=== PATIENT | female | born 1985 | race African-American/Black ===

== ENCOUNTER 2016-09-28 18:30 | Emergency (ER) | payer OTHER ==
[~2016-09-28] VITALS: Ht 144.8 cm; Wt 72.1 kg
--- NOTE | ~2016-09-28 | EKG ---
[address] [place] [address] ELECTROCARDIOGRAM REPORT Name: CONRAD BIRMINGHAM Room #: [facility]P [facility] [id number] Admission: 09/28/16 Attend Phys: Discharge: 09/28/16 Date of : 87 Report #: [id number] THIS REPORT FOR: //name// [facility] ED Test Date: 2016-09-28 Test Time: 18:38:29 Pat Name: CONRAD BIRMINGHAM Department: Room: Gender: F Network Account Manager: MZOOK : 1985 Requested By: Abdullahi Rivas Order Number: [id number] MD: Fran Katz Measurements Intervals [place] Rate: 102 P: 13 KS: 135 QRS: 62 QRSD: 84 T: 28 QT: 348 QTc: 454 Interpretive Statements Sinus tachycardia Otherwise normal tracing No previous ECG available for comparison Electronically Signed On 09-29-2016 8:49:25 CDT by Fran Katz [email or web address] <ELECTRONICALLY SIGNED> By: Fran Katz MD, [facility] 09/29/16 0849 1838 1838 Fran Katz MD, FACC /EPI
[~2016-09-28 18:30] MED LIST: MACROBID 100 M100 M1 PO; NOHOMEMEDICATIONS; PHENERGAN 25 MG25 M1 PO; VICODIN 5-5001 EACH PO
[2016-09-28 19:25] LABS: HEMATOCRIT 35.8 % (37.0-47.0); HEMOGLOBIN 11.2 gm/dL (12.0-15.0); MCH 20.9 pg (26.0-34.0); MCHC 31.3 g/dL (28.0-37.0); PLATELET COUNT 239 thou/uL (150-400); RBC 5.35 mil/uL (4.20-5.00); WBC 10.5 thou/uL (4.0-11.0)
[2016-09-28 19:30] LABS: MANUAL DIFF YES
[2016-09-28 19:35] LABS: CALCIUM 8.8 mg/dL (8.5-10.1)
[2016-09-28 19:39] LABS: URINE BILIRUBIN NEGATIVE (Negative); URINE BLOOD NEGATIVE (Negative); URINE COLOR YELLOW; URINE GLUCOSE-RANDOM* NEGATIVE (Negative); URINE KETONES NEGATIVE (Negative); URINE LEUKOCYTES-REFLEX TRACE (Negative); URINE PROTEIN (DIPSTICK) NEGATIVE (Negative); URINE UROBILINOGEN 0.2 E.U./dl (0.2-1.0)
[2016-09-28 19:39] LABS: ALBUMIN 3.5 g/dL (3.4-5.0); TOTAL BILIRUBIN 0.2 mg/dL (<0.1-1.0); TOTAL PROTEIN 7.7 g/dL (6.4-8.2)
[2016-09-28 19:51] LABS: ABSOLUTE NEUTROPHILS 6.1 thou/uL (1.4-8.2); ANISOCYTOSIS 1+; HYPOCHROMASIA 1+; MICROCYTES 2+; TOTAL CELL COUNT 100
[2016-09-28] MEDS ORDERED: FLEXERIL PO (21:11)
[2016-09-28] MEDS ORDERED: MOBIC15 MG PO (21:11)
[2016-09-28 21:27] VITALS: BP 131/79
== END 2016-09-28 21:27 | disposition home or self-care (01) ==
LOC: ER 18:30
PROVIDERS: Physician Assistant
DX: M54.5 Low back pain (principal); M94.0 Chondrocostal junction syndrome [Tietze]; I10 Essential (primary) hypertension; E11.9 Type 2 diabetes mellitus without complications

== ENCOUNTER 2020-01-22 02:48 | Emergency (ER) | payer OTHER ==
[~2020-01-22] VITALS: Ht 144.8 cm; Wt 52.6 kg
[~2020-01-22 02:48] MED LIST changes: +FLEXERIL PO; +MOBIC15 MG PO
[2020-01-22] MEDS ORDERED: NOHOMEMEDICATIONS (02:52)
[2020-01-22 04:12] VITALS: BP 160/95
== END 2020-01-22 04:23 | disposition home or self-care (01) ==
LOC: ER 02:48
DX: R51 Headache (principal); R50.9 Fever, unspecified; I10 Essential (primary) hypertension; E11.9 Type 2 diabetes mellitus without complications; F17.210 Nicotine dependence, cigarettes, uncomplicated

== ENCOUNTER 2021-06-22 02:07 | Emergency (ER) | payer OTHER ==
[~2021-06-22] VITALS: Ht 144.8 cm; Wt 74.8 kg
[2021-06-22] MEDS ORDERED: MELOXICAM15 MG PO (04:47)
[2021-06-22 05:25] VITALS: BP 154/85
== END 2021-06-22 05:26 | disposition home or self-care (01) ==
LOC: ER 02:07
DX: S29.012A Strain of muscle and tendon of back wall of thorax, initial encounter (principal); I10 Essential (primary) hypertension; E11.9 Type 2 diabetes mellitus without complications; Z98.890 Other specified postprocedural states; X58.XXXA Exposure to other specified factors, initial encounter; Y93.89 Activity, other specified; Y92.89 Other specified places as the place of occurrence of the external cause; Y99.8 Other external cause status